=== PATIENT | female | born 1980 | race Caucasian/White ===

== ENCOUNTER 2020-09-08 19:48 | Emergency (ER) | payer MEDICAID ==
[~2020-09-08] VITALS: Ht 157.5 cm; Wt 54.0 kg
[2020-09-08 20:02] VITALS: BP 107/64
[2020-09-08] MEDS ORDERED: KETOROLAC 30 MG/ML VIAL IM ONE (20:30)
[2020-09-08] MEDS ORDERED: diazePAM 5 MG TAB PO ONE (20:30)
[2020-09-08 21:20] VITALS: BP 107/64
== END 2020-09-08 21:20 | disposition home or self-care (01) ==
LOC: MED 19:48
DX: M54.2 Cervicalgia (principal); V89.2XXA Person injured in unspecified motor-vehicle accident, traffic, initial encounter; Y93.89 Activity, other specified; Y92.89 Other specified places as the place of occurrence of the external cause; Y99.8 Other external cause status
CPT/HCPCS: 96372; 99283; J1885